=== PATIENT | male | born 1950 | race African-American/Black ===

== ENCOUNTER 2024-07-14 23:45 | Inpatient (IN) | payer OTHER ==
[~2024-07-14] VITALS: Ht 182.9 cm; Wt 74.8 kg
[2024-07-15] VITALS (61 sets, daily range): BP systolic 86–166; BP diastolic 49–134; PULSE 55–115; RESP 10–27; TEMP 36.44736–36.696; O2SAT 94–100
[2024-07-15] MEDS ORDERED: ONDANSETRON HCL 4MG/2ML INJ IV ONE (00:30)
[2024-07-15 00:44] LABS: CLARITY URINE CLEAR (CLEAR); COLOR URINE YELLOW (YELLOW); GLUCOSE URINE NEGATIVE (NEGATIVE); KETONES URINE NEGATIVE (NEGATIVE); LEUKOCYTE ESTERASE URINE NEGATIVE (NEGATIVE); NITRITE URINE NEGATIVE (NEGATIVE); OCCULT BLOOD URINE NEGATIVE (NEGATIVE); PROTEIN URINE TRACE (NEGATIVE); SPECIFIC GRAVITY URINE 1.023 (1.005-1.030); UROBILINOGEN URINE 0.2 E.U./dL (0.2-1.0)
[2024-07-15] MEDS: METOCLOPRAMIDE HCL 10MG/2ML VIAL IV ONE (00:44)
[2024-07-15 00:45] LABS: BASOPHILS % 0.6 % (0.0-2.0); EOSINOPHILS % 2.4 % (0.0-5.0); HEMATOCRIT. 39.8 % (42.0-52.0); HEMOGLOBIN. 12.7 g/dL (14.0-18.0); LYMPHOCYTES % 48.2 % (20.0-50.0); MEAN CORPUSCULAR HEMOGLOBIN 28.4 pg (28.0-32.0); MEAN CORPUSCULAR HGB CONC 31.9 g/dL (31.0-37.0); MEAN CORPUSCULAR VOLUME 89.1 fL (80.0-94.0); MONOCYTES % 7.2 % (2.0-8.0); NEUTROPHILS % 41.6 % (40.0-76.0); PLATELET 195 x1000/uL (130-400); RED BLOOD CELL COUNT 4.47 mill/uL (4.7-6.1); WHITE BLOOD COUNT 5.1 x1000/uL (4.5-11.0)
[2024-07-15 00:47] LABS: CHLORIDE 102 mEq/L (98-107); POTASSIUM 3.8 mEq/L (3.5-5.1); SODIUM 135 mEq/L (136-145)
[2024-07-15 00:48] LABS: CALCIUM 9.1 mg/dL (8.7-10.4); CARBON DIOXIDE 25 mEq/L (21-32)
[2024-07-15 00:51] LABS: *AMPHETAMINES SCREEN URINE NEGATIVE (NEGATIVE); *BENZODIAZEPINES SCREEN URINE NEGATIVE (NEGATIVE)
[2024-07-15 00:52] LABS: *BARBITURATES SCREEN URINE NEGATIVE (NEGATIVE); *COCAINE SCREEN URINE NEGATIVE (NEGATIVE); CANNABINOID URINE SCREEN NEGATIVE (NEGATIVE); ECSTASY MDMA SCREEN URINE NEGATIVE (NEGATIVE); METHADONE URINE SCREEN NEGATIVE (NEGATIVE); OPIATES URINE SCREEN NEGATIVE (NEGATIVE); PHENCYCLIDINE URINE SCREEN NEGATIVE (NEGATIVE)
[2024-07-15 00:53] LABS: CREATININE 1.2 mg/dL (0.6-1.3); GLUCOSE 137 mg/dL (70-105); UREA NITROGEN BLOOD 19 mg/dL (9-23)
[2024-07-15 00:54] LABS: TROPONIN I HIGH SENSITIVITY 8 ng/L (3.0-53)
[2024-07-15] MEDS: NICARDIPINE 40MG/200ML PREMIX 200 ML IV PRN (01:05)
[2024-07-15] MEDS: ONDANSETRON HCL 4MG/2ML INJ IV NR (01:06)
[2024-07-15 01:19] LABS: INR 1.1; PROTHROMBIN TIME 11.7 sec (9.6-11.0)
[2024-07-15] MEDS: IOHEXOL-350 100 ML BOTTLE ONE (01:19)
[2024-07-15 01:24] LABS: ETHANOL BLOOD < 10 mg/dL (<10)
[2024-07-15] MEDS: ACETAMINOPHEN 1000MG/100ML 100 ML IV ONE (01:43)
[2024-07-15 03:16] LABS: BACTERIA URINE NONE SEEN; RBC URINE 0-2 /hpf (0-2); SQUAMOUS EPITHELIAL CELL URINE NONE SEEN /lpf (RARE/1+); WBC URINE 0-2 /hpf (0-2)
[2024-07-15 05:21] LABS: CHLORIDE 103 mEq/L (98-107); POTASSIUM 3.4 mEq/L (3.5-5.1); SODIUM 136 mEq/L (136-145)
[2024-07-15 05:23] LABS: CALCIUM 9.4 mg/dL (8.7-10.4); CARBON DIOXIDE 25 mEq/L (21-32)
[2024-07-15 05:28] LABS: CREATININE 1.1 mg/dL (0.6-1.3); GLUCOSE 124 mg/dL (70-105); UREA NITROGEN BLOOD 16 mg/dL (9-23)
[2024-07-15] MEDS ORDERED: NICARDIPINE 100 MG in SODIUM CHLORIDE 0.9% 60 ML IV PRN (05:45)
[2024-07-15 05:56] LABS: BASOPHILS % 0.4 % (0.0-2.0); EOSINOPHILS % 0.3 % (0.0-5.0); HEMATOCRIT. 41.3 % (42.0-52.0); HEMOGLOBIN. 13.2 g/dL (14.0-18.0); LYMPHOCYTES % 22.5 % (20.0-50.0); MEAN CORPUSCULAR HEMOGLOBIN 29.2 pg (28.0-32.0); MEAN CORPUSCULAR VOLUME 91.2 fL (80.0-94.0); MEAN PLATELET VOLUME 8.9 fl (7.4-10.4); MONOCYTES % 4.6 % (2.0-8.0); NEUTROPHILS % 72.2 % (40.0-76.0); PLATELET 187 x1000/uL (130-400); RED BLOOD CELL COUNT 4.53 mill/uL (4.7-6.1); RED CELL DISTRIBUTION WIDTH 13.5 % (11.6-14.6); WHITE BLOOD COUNT 5.9 x1000/uL (4.5-11.0)
[2024-07-15] MEDS: DEXT 5%/LACTATED RINGERS 1,000 ML IV SCH (06:00)
[2024-07-15] MEDS: DEXAMETHASONE 10 MG/ML VIAL IV SCH (06:11)
[2024-07-15] MEDS ORDERED: ACETAMINOPHEN 325MG TABLET PO PRN (09:00)
[2024-07-15] MEDS ORDERED: IPRATROPIUM/ALBUTEROL 0.5-3(2.5)MG/3ML NEB HHN PRN (09:00)
[2024-07-15] MEDS ORDERED: DIPHENHYDRAMINE 50MG/ML VIAL IV PRN (09:00)
[2024-07-15] MEDS: ONDANSETRON HCL 4MG/2ML INJ IV PRN (10:34)
[2024-07-15] MEDS: DEXAMETHASONE 4MG/ML 1ML VIAL IV SCH (11:32)
[2024-07-15] MEDS: CLONIDINE 0.1MG TABLET PO PRN (19:50)
[2024-07-16] VITALS (52 sets, daily range): BP systolic 88–164; BP diastolic 53–127; PULSE 54–71; RESP 10–22; TEMP 36.72516–36.83628; O2SAT 93–100
[2024-07-16 04:48] LABS: BASOPHILS % 0.1 % (0.0-2.0); HEMATOCRIT. 37.2 % (42.0-52.0); HEMOGLOBIN. 12.3 g/dL (14.0-18.0); LYMPHOCYTES % 7.6 % (20.0-50.0); MEAN CORPUSCULAR HEMOGLOBIN 29.7 pg (28.0-32.0); MEAN CORPUSCULAR HGB CONC 33.2 g/dL (31.0-37.0); MEAN CORPUSCULAR VOLUME 89.4 fL (80.0-94.0); MEAN PLATELET VOLUME 9.1 fl (7.4-10.4); MONOCYTES % 3.3 % (2.0-8.0); PLATELET 215 x1000/uL (130-400); RED BLOOD CELL COUNT 4.16 mill/uL (4.7-6.1); RED CELL DISTRIBUTION WIDTH 13.3 % (11.6-14.6); WHITE BLOOD COUNT 9.6 x1000/uL (4.5-11.0)
[2024-07-16 05:31] LABS: CARBON DIOXIDE 25 mEq/L (21-32); CHLORIDE 106 mEq/L (98-107); POTASSIUM 4.1 mEq/L (3.5-5.1); SODIUM 138 mEq/L (136-145)
[2024-07-16 05:32] LABS: CALCIUM 9.2 mg/dL (8.7-10.4)
[2024-07-16 05:37] LABS: CREATININE 1.2 mg/dL (0.6-1.3); GLUCOSE 146 mg/dL (70-105); UREA NITROGEN BLOOD 17 mg/dL (9-23)
[2024-07-17] VITALS: BP 129/80; PULSE 55; RESP 14; TEMP 36.72516; O2SAT 99
[2024-07-17 04:00] VITALS: BP 142/87; PULSE 52; RESP 20; TEMP 36.89184; O2SAT 99
[2024-07-17 05:34] LABS: CALCIUM 9.2 mg/dL (8.7-10.4); CHLORIDE 106 mEq/L (98-107); POTASSIUM 3.8 mEq/L (3.5-5.1); SODIUM 140 mEq/L (136-145)
[2024-07-17 05:35] LABS: CARBON DIOXIDE 30 mEq/L (21-32)
[2024-07-17 05:40] LABS: CREATININE 1.2 mg/dL (0.6-1.3); GLUCOSE 94 mg/dL (70-105); UREA NITROGEN BLOOD 21 mg/dL (9-23)
[2024-07-17 05:47] LABS: BASOPHILS % 0.1 % (0.0-2.0); HEMATOCRIT. 38.5 % (42.0-52.0); HEMOGLOBIN. 12.5 g/dL (14.0-18.0); LYMPHOCYTES % 12.1 % (20.0-50.0); MEAN CORPUSCULAR HEMOGLOBIN 29.2 pg (28.0-32.0); MEAN CORPUSCULAR HGB CONC 32.5 g/dL (31.0-37.0); MEAN CORPUSCULAR VOLUME 89.9 fL (80.0-94.0); MEAN PLATELET VOLUME 9.6 fl (7.4-10.4); MONOCYTES % 6.3 % (2.0-8.0); NEUTROPHILS % 81.5 % (40.0-76.0); PLATELET 200 x1000/uL (130-400); RED BLOOD CELL COUNT 4.28 mill/uL (4.7-6.1); RED CELL DISTRIBUTION WIDTH 13.6 % (11.6-14.6); WHITE BLOOD COUNT 14.7 x1000/uL (4.5-11.0)
[2024-07-17 08:00] VITALS: BP 118/76; PULSE 47; RESP 18; TEMP 36.72516; O2SAT 98
[2024-07-17] MEDS: AMLODIPINE 5MG TABLET PO SCH (09:00)
[2024-07-17 12:00] VITALS: BP 149/83; PULSE 52; RESP 20; TEMP 36.44736; O2SAT 96
[2024-07-17] MEDS ORDERED: AMLO5TAB88 MT (15:29)
[2024-07-17 16:00] VITALS: BP 169/97; PULSE 53; RESP 18; TEMP 36.89184; O2SAT 97
[2024-07-17 20:00] VITALS: BP 189/101; PULSE 48; RESP 18; TEMP 36.72516; O2SAT 98
[2024-07-17] MEDS: HYDRALAZINE 20MG/ML VIAL IV PRN (21:48)
[2024-07-18] VITALS: BP 113/63; PULSE 74; RESP 20; TEMP 37.16964; O2SAT 98
[2024-07-18 04:00] VITALS: BP 137/88; PULSE 67; RESP 20; TEMP 37.66968; O2SAT 98
[2024-07-18 08:00] VITALS: BP 161/92; PULSE 89; RESP 22; TEMP 36.33624; O2SAT 98
[2024-07-18] MEDS ORDERED: AMLO5TAB88 MT (09:44)
[2024-07-18] MEDS ORDERED: LOSA50TA41 MT (11:01)
[2024-07-18] MEDS: LOSARTAN 50 MG TABLET PO SCH (11:37)
[2024-07-18 12:00] VITALS: BP 162/97; PULSE 80; RESP 18; TEMP 36.33624; O2SAT 97
[2024-07-18 12:26] VITALS: BP 146/87; PULSE 83; TEMP 98.2; O2SAT 86
[2024-07-18] MEDS ORDERED: AMLODIPINE 5MG TABLET PO SCH (21:00)
== END 2024-07-18 14:25 | disposition home or self-care (01) | DRG 66 ==
LOC: ER 23:45 → MICUNO 07-15 00:50 → EDBEDREQSVC 07-15 00:53 → EDBEDREQ 07-15 00:53 → EDBEDREQTM 07-15 00:53 → 7WST 07-17 00:24
PROVIDERS: ADMIT Internal Medicine; ATTEND Internal Medicine
DX: I61.3 Nontraumatic intracerebral hemorrhage in brain stem (principal); I16.0 Hypertensive urgency; I49.3 Ventricular premature depolarization; I65.21 Occlusion and stenosis of right carotid artery; J43.9 Emphysema, unspecified; Z86.73 Personal history of transient ischemic attack (TIA), and cerebral infarction without residual deficits
CPT/HCPCS: 36415; 70496; 70498; 70551; 71045; 80048; 80305; 80320; 81003; 83880; 84484; 85025; 93005; 93970; 97162; 97166; 99291; J0360; J1100; J2405; J2765; J7121; Q9967; G0480; J0131